=== PATIENT | female | born 1965 | race Caucasian/White ===

== ENCOUNTER 2018-02-16 09:39 | Emergency (ER) | payer MEDICAID ==
[~2018-02-16] VITALS: Ht 157.5 cm; Wt 72.7 kg
[2018-02-16 09:44] VITALS: BP 138/94; Ht 157.5 cm; Wt 72.7 kg
[2018-02-16] MEDS ORDERED: BP MEDICATION (09:46)
[2018-02-16] MEDS ORDERED: CYCLOBENZAPRINE10 MG PO (09:46)
== END 2018-02-16 10:42 | disposition left against medical advice (07) ==
LOC: D.ER 09:39
DX: Z76.5 Malingerer [conscious simulation] (principal); F17.200 Nicotine dependence, unspecified, uncomplicated